=== PATIENT | male | born 1970 | race Caucasian/White ===

== ENCOUNTER 2019-05-10 17:00 | Emergency (ER) | payer MEDICAID ==
[~2019-05-10] VITALS: Ht 180.3 cm; Wt 122.5 kg
[2019-05-10 17:07] VITALS: BP_SYST 148
--- NOTE | 2019-05-10 17:07 | NUR ---
Patient triaged and placed in waiting room. VSS and patient appears in no acute distress at this time. Accompanied by SELF, awaiting available bed, and MD notified of need for MSE.
--- NOTE | 2019-05-10 20:33 | NUR ---
Pt ambulatory to bed 4 for evaluation
--- NOTE | 2019-05-10 20:35 | NUR ---
PT brought in by , pt awake, alert, oriented x4. Pt states that he has had r eye redness and irritation for a few days now. He was given eyedrops by urgent care, with no relief. Pt 20/20 visial acuity test. Pt denies purulent discharge. Pt denies chest pain, nausea, vomiting, diarrhea, shortness of breath. Pt denies any other medical complaint at this time. Pt resting in ED bed, VSS
--- NOTE | 2019-05-10 21:40 | NUR ---
Bedside examining patient.
--- NOTE | 2019-05-10 21:45 | NUR ---
Bedside performing Eye Exam
[2019-05-10 22:15] VITALS: BP_SYST 140
--- NOTE | 2019-05-10 22:15 | NUR ---
Patient given written and verbal discharge instructions and verbalizes understanding. ER MD discussed with patient the results and treatment provided. Patient in stable condition. ID arm band removed. IV catheter removed intact and dressing applied, no active bleeding. RX of Gentamicin Ophthalmic solution given. Patient educated on pain management and to follow up with PMD. Pain Scale 2/10. Opportunity for questions provided and answered. Medication side effect fact sheet provided.
== END 2019-05-10 22:15 | disposition home or self-care (01) ==
LOC: SED 17:00
DX: B30.9 Viral conjunctivitis, unspecified (principal)
CPT/HCPCS: 99283